=== PATIENT | male | born 1950 | race American Indian/Alaskan Native ===

== ENCOUNTER 2024-04-29 08:50 | Day surgery (SDC) | payer OTHER ==
[2024-04-26 08:52] VITALS: BP 186/82
[~2024-04-29] VITALS: Ht 180.3 cm; Wt 106.8 kg
[~2024-04-29 08:50] MED LIST: ASPIRIN EC81 MG PO; AZITHROMYCIN250 MG PO; BREYNA 80-4.510.3 GM; CEFAZOLIN SODIUM 2 GM/20 ML SYR IV SCH; COZAAR50 MG PO; ENBREL50 MG/1 ML SUB-Q; FLOMAX0.4 MG PO; FOLIC ACID1 MG PO; IBLOOD GLUCOSE TEST STRIP 1 EA TEST VI PRN; IBUPROFEN400 MG PO; LACTATED RINGER'S 1,000 ML IV SCH; LIDOCAINE HCL 1% 5 ML SDV INJ ONE; LIPITOR10 MG PO; LISINOPRIL5 MG PO; MAGNESIUM400 M1 PO; MEDROL4 M1 PO; METFORMIN HCL850 MG PO; MIDAZOLAM HCL 5 MG/5 ML VIAL IV PRN; NORCO 5-325 TA1 EACH PO; OMEPRAZOLE20 MG PO; PREDNISONE10 MG PO; SIMVASTATIN10 MG PO; VITAMIN D21250 MCG PO; VITAMIN D3125 MCG PO; fentaNYL citrate 100 MCG/2 ML VIAL IV PRN
[2024-04-29 09:19] VITALS: BP 167/79
[2024-04-29] MEDS ORDERED: LIDOCAINE HCL 2% 5 ML SDV ONE (10:24)
[2024-04-29] MEDS ORDERED: propofoL 200 MG/20 ML VIAL ONE (10:54)
--- NOTE | 2024-04-29 11:17 | NUR ---
04/29/24 1117 Skye Navarro 1059- PT ARRIVES TO THE PACU WITH A NATURAL AIRWAY ON 2L OF O2 VIA NC. BREATHING IS EVEN AND UNLABORED. ALL MONITORS PUT IN PLACE. LR INFUSING IN HIS R FOREARM. ABDOMEN IS SOFT AND NONDISTENDED. PT IS LAYING ON HIS LEFT SIDE. PT IS NON REACTIVE TO TACTILE AND VERBAL STIMULI. MIRIAM ROWELL REPORTS THAT PT HAS BEEN BRADYCARDIC DURING THE CASE AND IS AT BASELINE. 1110- VSS. PT IS RESTING WITH EYES CLOSED AND NO APPARENT DISTRESS. 1115- PT WAKES AND ASKS TO USE THE RESTROOM. PT IS ORIENTED TO PACU. PT DENIES PAIN AND NAUSEA. MD AT BEDSIDE TALKING WITH PT AND PLAN OF CARE DISCUSSED.
[2024-04-29 11:30] VITALS: BP 181/80
--- NOTE | 2024-04-30 05:42 | OR ---
[facility] [address], [place] [address] Signed DATE OF OPERATION: 04/29/2024 SURGEON: Thea Montejo MD PREOPERATIVE DIAGNOSES: 1. Diverticulosis. 2. Personal history of colonic polyps in 2017 at age 65. 3. A 7 mm bilobed polyp at 110 cm (snare). 4. A 5 mm polyp at 100 cm. 5. Diverticulosis. 6. Minimal internal hemorrhoids. PROCEDURES: Colonoscopy, snare polypectomy, and hot biopsy. ESTIMATED BLOOD LOSS: None. INDICATIONS: Roberth is a 73-year-old gentleman, asked to see me for a followup colonoscopy. I first helped him in 2006 at age 55 for quite positive stool. He had small hyperplastic polyps removed and a little diverticulum in the right colon. No obvious hemorrhoids back then. He came back in 10 years. He had done fine with Versed and fentanyl. In 2017 at the age of 65, we found right and left-sided diverticulosis. He had two small adenomatous polyps and two small hyperplastic polyps removed. They were all 4 mm or less in diameter. He did well with 7 mg of Versed and 100 mcg of fentanyl. We asked him to follow up in 5 years. He had to be put on a biologic agent for his rheumatoid arthritis. 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 He had to change his medications. He is also diabetic at this time. He has lost some weight. He said he still has issues with his lungs and he knows he has a fatty liver. He had normocytic anemia early in the year, but that has now resolved on his preop blood work. He also has coronary artery disease, and apparently had laryngospasm during one of his procedures. He has also had the right shoulder and knee replaced. I explained to him it is probably byrne he has monitored anesthesia care with propofol infusion for all future endoscopies. He had thought that would be a good idea as well. In the office, I gave him a pamphlet on colonoscopy. He recalls the test well. There is risk including, but not limited to gas bloating, crampy abdominal pain, bleeding, perforation requiring surgery, and missed diagnosis. It is the same prep he has taken before. He always uses zero Gatorade at home. We had him hold his metformin the morning until the procedure was completed. He understands an adult person has to take him home afterwards, usually that is his Electronically Signed By: THEA MONTEJO MD 04/30/24 0542 PATIENT NAME: ROBERTH BURR OPERATIVE REPORT DATE OF : 46 REPORT #: [id number] PHYSICIAN: THEA MONTEJO MD PCP: GAYLE YIP NP REPORT IS CONFIDENTIAL AND NOT TO BE RELEASED WITHOUT AUTHORIZATION [facility] [address], [place] [address] Signed daughter. He had expressed understanding and wished to proceed. PROCEDURE NOTE: Roberth was taken into our endoscopy suite, placed in the left lateral decubitus position. He was given monitored anesthesia care with propofol infusion per our nurse toolsmith. A digital rectal exam was performed. He had good sphincter tone. There were no masses. The adult colonoscope was introduced and advanced under direct visualization of camera. On this occasion with his advancing age and now his diabetes, his prep was moderate. I think in the future he should increase the polyethylene glycol up to a full gallon as well as Dulcolax tablets. We used some abdominal compression and eventually made our way over to the cecum and ileocecal valve. The scope was withdrawn. We took out one polyp at 100 cm with the hot biopsy forceps. Another polyp came out at 110 cm with the snare. He does have diverticula throughout. They are moderate in size, few in number and scattered about. Once in the rectum, the scope was retroflexed. He does have minimal internal hemorrhoid tissue. After this, the gas was suctioned out, colonoscope removed. Roberth tolerated the procedure quite well. RECOMMENDATIONS: Roberth will return to my office in 7 to 14 days to review his results. I suspect he will stay on the five year plan. He will always need monitored anesthesia care in the future. He should increase his polyethylene glycol up to one full gallon along with some Dulcolax tablets. Thea Montejo MD ALB/MODL /[id number] cc: Patient's Chart Thea Montejo MD [facility] Copies: THEA MONTEJO MD Electronically Signed By: THEA MONTEJO MD 04/30/24 0542 PATIENT NAME: ROBERTH BURR OPERATIVE REPORT DATE OF : 46 REPORT #: [id number] PHYSICIAN: THEA MONTEJO MD PCP: GAYLE YIP NP REPORT IS CONFIDENTIAL AND NOT TO BE RELEASED WITHOUT AUTHORIZATION [address] [address] Signed [facility] ~ Electronically Signed By: THEA MONTEJO MD 04/30/24 0542 PATIENT NAME: ROBERTH BURR WILLIE OPERATIVE REPORT DATE OF : 46 REPORT #: [id number] PHYSICIAN: THEA MONTEJO MD PCP: GAYLE YIP NP REPORT IS CONFIDENTIAL AND NOT TO BE RELEASED WITHOUT AUTHORIZATION
== END 2024-04-29 11:48 | disposition home or self-care (01) ==
LOC: DS 08:50
PROVIDERS: ATTEND Colon & Rectal Surgery
PROC: 0DBE8ZX Excision of Large Intestine, Via Natural or Artificial Opening Endoscopic, Diagnostic (ICD-10-PCS; principal; 2024-04-29 10:30)
DX: K57.30 Diverticulosis of large intestine without perforation or abscess without bleeding (principal); K64.8 Other hemorrhoids; D12.6 Benign neoplasm of colon, unspecified; I10 Essential (primary) hypertension; I25.10 Atherosclerotic heart disease of native coronary artery without angina pectoris; E11.9 Type 2 diabetes mellitus without complications; J38.5 Laryngeal spasm; D64.9 Anemia, unspecified; E78.5 Hyperlipidemia, unspecified; Z79.84 Long term (current) use of oral hypoglycemic drugs; Z79.899 Other long term (current) drug therapy; Z86.11 Personal history of tuberculosis
CPT/HCPCS: 00811; J0690; J2003; J2704; J7121

== ENCOUNTER 2024-10-15 02:19 | Emergency (ER) | payer OTHER ==
[~2024-10-15] VITALS: Ht 180.3 cm; Wt 111.4 kg
[~2024-10-15 02:19] MED LIST changes: -CEFAZOLIN SODIUM 2 GM/20 ML SYR IV SCH; -IBLOOD GLUCOSE TEST STRIP 1 EA TEST VI PRN; -LACTATED RINGER'S 1,000 ML IV SCH; -LIDOCAINE HCL 1% 5 ML SDV INJ ONE; -MIDAZOLAM HCL 5 MG/5 ML VIAL IV PRN; -fentaNYL citrate 100 MCG/2 ML VIAL IV PRN
[2024-10-15 02:46] LABS: HEMATOCRIT 30.1 % (40.1-51.0); MCH 28.7 PG (25.7-32.2); MCHC 33.2 g/dL (32.3-36.5); MCV 86.2 fL (79.0-92.2); PLATELET COUNT 188 K/uL (163-337); RBC 3.49 M/uL (4.63-6.08)
[2024-10-15 03:00] LABS: BANDS, MANUAL DIFF 1; BASOPHILS, MANUAL DIFF 1; EOSINOPHILS, MANUAL DIFF 2; LYMPHOCYTES, MANUAL DIFF 65; MONOCYTES, MANUAL DIFF 16; NEUTROPHILS, MANUAL DIFF 15
[2024-10-15 03:12] LABS: ALBUMIN 2.6 g/dL (3.4-5.0); ALBUMIN/GLOBULIN RATIO 0.7 (1.1-2.4); ANION GAP 10.9 (7-21); BILIRUBIN, TOTAL 0.4 mg/dL (0.2-1.0); CALCIUM 8.1 mg/dL (8.5-10.1); CREATININE, SERUM 1.15 mg/dL (0.70-1.30); MAGNESIUM 1.4 mg/dL (1.8-2.4); POTASSIUM 3.9 mmol/L (3.5-5.1); PROTEIN, TOTAL 6.3 g/dL (6.4-8.2)
[2024-10-15] MEDS ORDERED: FUROSEMIDE 40 MG/4 ML VIAL IV ONE (03:30)
[2024-10-15] MEDS ORDERED: MAGNESIUM OXIDE 400 MG TABLET PO ONE (03:45)
[2024-10-15 03:52] LABS: BILIRUBIN, URINE NEGATIVE (negative); BLOOD/HGB, URINE MODERATE (Negative); KETONE, URINE NEGATIVE (Negative); LEUK ESTERASE, URINE NEGATIVE (negative); NITRITE, URINE NEGATIVE (negative)
[2024-10-15 04:11] LABS: BACTERIA, URINE 1+ /hpf (negative); CASTS, URINE NONE SEEN \\lpf; COLLECTION TYPE, URINE CLEAN CATCH; CRYSTALS, URINE NONE SEEN (0-1+); EPITHELIAL CELLS, URINE SQUAMOUS 1+ /lpf (0-1+); REFLEX CULTURE, URINE No (No)
[2024-10-15 04:30] LABS: TSH, 3RD GENERATION 3.868 uIU/mL (0.358-3.740)
[2024-10-15] MEDS ORDERED: MAGNESIUM OXID400 M1 PO (05:00)
[2024-10-15] MEDS ORDERED: LASIX40 MG PO (05:00)
[2024-10-15] MEDS ORDERED: KLOR-CON M2020 MEQ PO (05:00)
[2024-10-15 05:07] LABS: ABO O; ANTIBODY SCREEN NEGATIVE; RH POSITIVE
[2024-10-15 05:16] VITALS: BP 169/89
--- NOTE | 2024-10-17 12:12 | EKG ---
[facility] [address] [facility] [place], [place] [address] Signed Sinus rhythm with 1st degree AV block Left axis deviation Nonspecific ST and T wave abnormality Abnormal ECG When compared with ECG of 26-APR-2024 08:57, Incomplete right bundle branch block is no longer present T wave inversion now evident in Anterior leads Confirmed by Barrett Rivera DO ([id number]) on 10/17/2024 12:12:06 PM Electronically Signed By: BARRETT RIVERA DO 10/17/24 1212 PATIENT NAME: ROBERTH BURR WILLIE Electrocardiogram DATE OF : 46 PHYSICIAN: BARRETT RIVERA DO REPORT #: [id number] REPORT IS CONFIDENTIAL AND NOT TO BE RELEASED WITHOUT AUTHORIZATION
== END 2024-10-15 05:17 | disposition home or self-care (01) ==
LOC: ED 02:19
PROVIDERS: Internal Medicine
DX: I11.0 Hypertensive heart disease with heart failure (principal); I50.9 Heart failure, unspecified; E11.9 Type 2 diabetes mellitus without complications; M19.90 Unspecified osteoarthritis, unspecified site; Z89.412 Acquired absence of left great toe; Z79.84 Long term (current) use of oral hypoglycemic drugs; Z79.899 Other long term (current) drug therapy
CPT/HCPCS: 36415; 71045; 80053; 81001; 83735; 83880; 84443; 84484; 85025; 86850; 86900; 86901; 93005; 93010; 96374; 99285-25; J1938

== ENCOUNTER 2024-12-27 06:37 | Day surgery (SDC) | payer OTHER ==
[2024-12-27] VITALS (8 sets, daily range): BP systolic 137–156; BP diastolic 65–80
[~2024-12-27] VITALS: Ht 180.3 cm; Wt 96.0 kg
[~2024-12-27 06:37] MED LIST changes: +BUDESONIDE-FO10.2 GM INH; +CLARITIN10 M2 PO; +KLOR-CON M1010 MEQ PO; +KLOR-CON M2020 MEQ PO; +LACTATED RINGER'S 1,000 ML IV SCH; +LASIX40 MG PO; +MAGNESIUM OXID400 M1 PO; +PROSCAR5 MG PO; +TOPROL XL50 MG PO
[2024-12-27] MEDS ORDERED: LIDOCAINE HCL 1% 5 ML SDV INJ ONE (07:00)
[2024-12-27] MEDS ORDERED: IBLOOD GLUCOSE TEST STRIP 1 EA TEST VI PRN (07:00)
[2024-12-27] MEDS ORDERED: CEFAZOLIN SODIUM 2 GM in SODIUM CHLORIDE 0.9% 100 ML IV SCH (07:00)
[2024-12-27] MEDS ORDERED: DEXAMETHASONE SOD PHOS 4 MG/ML VIAL ONE (07:52)
[2024-12-27] MEDS ORDERED: fentaNYL citrate 100 MCG/2 ML VIAL ONE (07:52)
[2024-12-27] MEDS ORDERED: SUCCINYLCHOLINE IN 0.9% NACL 200 MG/10 ML SYRINGE ONE (07:52)
[2024-12-27] MEDS ORDERED: LIDOCAINE HCL 2% 5 ML SDV ONE (07:52)
[2024-12-27] MEDS ORDERED: ROCURONIUM BROMIDE 50 MG/5 ML SYR ONE (07:52)
[2024-12-27] MEDS ORDERED: LACTATED RINGER'S 1,000 ML IV SCH (08:45)
[2024-12-27] MEDS ORDERED: MORPHINE SULFATE 4 MG/ML VIAL IV PRN (08:45)
[2024-12-27] MEDS ORDERED: GLUCAGON,HUMAN RECOMBINANT 1 MG/ML VIAL SUB-Q PRN (09:00)
[2024-12-27] MEDS ORDERED: DEXTROSE 50% 50 ML SYR IV PRN ×2 (09:00)
[2024-12-27] MEDS ORDERED: TRAMADOL HCL 50 MG TAB PO PRN (09:00)
[2024-12-27] MEDS ORDERED: IBLOOD GLUCOSE TEST STRIP 1 EA TEST XX PRN (09:00)
[2024-12-27] MEDS ORDERED: LOSARTAN POTASSIUM 50 MG TAB PO SCH (09:00)
[2024-12-27] MEDS ORDERED: DEXTROSE 5% 1,000 ML IV PRN (09:00)
[2024-12-27] MEDS ORDERED: SUGAMMADEX SODIUM 200 MG/2 ML ML ONE (10:22)
[2024-12-27] MEDS ORDERED: ACETAMINOPHEN 1,000 MG/100 ML VIAL IV ONE (10:30)
[2024-12-27] MEDS ORDERED: fentaNYL citrate 50 MCG/ML SDV IV PRN (11:15)
[2024-12-27] MEDS ORDERED: HYDROmorphone HCL 1 MG/ML SYR IV PRN (11:15)
[2024-12-27] MEDS ORDERED: NALOXONE HCL 0.4 MG SYR IV PRN (11:15)
[2024-12-27] MEDS ORDERED: Insulin Regular, Human 100 UNIT/ML ML SUB-Q SCH (12:00)
[2024-12-27] MEDS ORDERED: IBLOOD GLUCOSE TEST STRIP 1 EA TEST XX SCH (12:00)
[2024-12-27] MEDS ORDERED: TRAMADOL HCL50 MG PO (12:32)
[2024-12-27] MEDS ORDERED: LEVOFLOXACIN500 MG PO (12:32)
[2024-12-27] MEDS ORDERED: SEVOFLURANE 250 ML BTL INH ONE (16:57)
[2024-12-27] MEDS ORDERED: FAMOTIDINE 20 MG/ 2 ML VIAL IV SCH (17:00)
[2024-12-27] MEDS ORDERED: ARFORMOTEROL TARTRATE 15 MCG/2 ML VIAL INH SCH (20:00)
[2024-12-27] MEDS ORDERED: BUDESONIDE 0.5 MG/2 ML VIAL INH SCH (20:00)
[2024-12-27] MEDS ORDERED: BUDESONIDE 0.25 MG/2 ML NEB INH SCH (20:00)
[2024-12-27] MEDS ORDERED: FUROSEMIDE 40 MG TAB PO SCH (21:00)
[2024-12-27] MEDS ORDERED: POTASSIUM CHLORIDE 10 MEQ TABCR PO SCH (21:00)
[2024-12-28 01:52] VITALS: BP 142/68
[2024-12-28 01:53] VITALS: BP 142/68
[2024-12-28 06:08] VITALS: BP 129/67
[2024-12-28 06:12] VITALS: BP 129/67
[2024-12-28 08:06] VITALS: BP 121/61
[2024-12-28 08:09] VITALS: BP 121/61
[2024-12-28] MEDS ORDERED: METOPROLOL SUCCINATE 50 MG TABCR PO SCH (09:00)
--- NOTE | 2024-12-30 17:24 | PATH ---
[facility] [address] [place] [place], [place] [address] Signed SPECIMEN(S): A PROSTATE TISSUE SPECIMEN SOURCE: A. PROSTATE TISSUE CLINICAL HISTORY: BPH with LUTS FINAL PATHOLOGIC DIAGNOSIS: Prostate, TURP: - Glandular and stromal hyperplasia. - Negative for malignancy. SDL MICROSCOPIC EXAMINATION: Histologic sections of all submitted blocks are examined by light microscopy. These findings, together with the gross examination, support the pathologic diagnosis. GROSS DESCRIPTION: The specimen, labeled and designated "Star, prostate tissue," is received in formalin and consists of multiple fragments of pink-verma soft and rubbery tissue (7.9 g, 4.5 x 3.7 x 1.8 cm in aggregate). The specimen is submitted entirely in cassette (A1-A6). VB (under the direct supervision of a pathologist) The Gross Description was prepared using a voice recognition system. The report was reviewed for accuracy; however, sound-alike word errors, addition and/or deletions may occur. If there are any questions about this report, please contact Client Services. ADDITIONAL NOTES: Immunohistochemical and/or in situ hybridization studies if performed in this case included appropriate positive controls that reacted as expected. This test was developed and its performance characteristics determined by [facility]. It has not been cleared or approved by the U.S. Food and Drug Administration. The FDA has determined that such clearance or approval is not necessary. This test is used for clinical purposes. It should not be regarded as investigational or for research. [facility] is certified under the Clinical Laboratory Improvement Amendments of 1988 (CLIA) as qualified to perform high complexity clinical PATIENT NAME: ROBERTH BURR PATHOLOGY DATE OF : 46 REPORT #: [id number] PHYSICIAN: YAMILKA GARCÍA PCP: AYDE PACK PAC REPORT IS CONFIDENTIAL AND NOT TO BE RELEASED WITHOUT AUTHORIZATION [address], [place] [address] Signed laboratory testing. PERFORMING LABORATORY: Technical component was performed by [facility], [address] [place] [id number] (CLIA# [id number]). Professional interpretation was performed by [facility], [address] [place] [phone] (CLIA#: [id number]). Diagnostician: Belem Bernardo MD Pathologist Electronically Signed 12/30/2024 Copies: ~ PATIENT NAME: ROBERTH BURR PATHOLOGY DATE OF : 46 REPORT #: [id number] PHYSICIAN: YAMILKA GARCÍA PCP: AYDE PACK PAC REPORT IS CONFIDENTIAL AND NOT TO BE RELEASED WITHOUT AUTHORIZATION
== END 2024-12-28 09:58 | disposition home or self-care (01) ==
LOC: DS 06:37 → MS 11:00 → DS 12-28 09:58
PROVIDERS: ATTEND Urology
PROC: 0VT08ZZ Resection of Prostate, Via Natural or Artificial Opening Endoscopic (ICD-10-PCS; principal; 2024-12-27 08:30)
DX: N40.1 Benign prostatic hyperplasia with lower urinary tract symptoms (principal); R39.12 Poor urinary stream; R35.1 Nocturia; N32.0 Bladder-neck obstruction; E11.9 Type 2 diabetes mellitus without complications; I25.10 Atherosclerotic heart disease of native coronary artery without angina pectoris; I10 Essential (primary) hypertension; E78.5 Hyperlipidemia, unspecified; L40.50 Arthropathic psoriasis, unspecified; Z79.84 Long term (current) use of oral hypoglycemic drugs; Z79.899 Other long term (current) drug therapy
CPT/HCPCS: 00914; 51700; 94640; 94762; 96360; 96361; 96372; 96374; A9270; C1713; C1769; J0330; J0688; J0696; J1100; J1815; J2003; J2405; J2704; J3010; J3490; J7121; J7605